=== PATIENT | male | born 1990 | race Caucasian/White ===

== ENCOUNTER 2023-07-04 17:11 | Emergency (ER) | payer MEDICAID ==
[~2023-07-04] VITALS: Ht 185.4 cm; Wt 88.6 kg
[2023-07-04 17:31] VITALS: TEMP 97.4
[2023-07-04 19:52] VITALS: BP 132/79; PULSE 104; RESP 12; O2SAT 100
== END 2023-07-04 20:31 | disposition home or self-care (01) ==
LOC: ER 17:12
DX: S61.411D Laceration without foreign body of right hand, subsequent encounter (principal); Z48.00 Encounter for change or removal of nonsurgical wound dressing; X58.XXXD Exposure to other specified factors, subsequent encounter
CPT/HCPCS: 99281